=== PATIENT | female | born 1955 | race African-American/Black ===

== ENCOUNTER 2025-08-23 22:30 | Emergency (ER) | payer OTHER ==
[~2025-08-23] VITALS: Ht 167.6 cm; Wt 95.0 kg
[~2025-08-23 22:30] MED LIST: AMLO5TAB88 MT; ATOR-2 PO; EZET10TA81 MT; INSU100I28 SQ; LOSA50TA41 MT; METO-539 MT; MIRT7.5T11 MT; RIVA20TA MT; SITA50TA3 MT; VENL75CA56 MT
[2025-08-23 22:42] VITALS: O2SAT 100
[2025-08-23] MEDS: MAGNESIUM/ALUMINUM HYDROXIDE/SIMETHICONE 30ML UDC PO ONE (22:45)
[2025-08-23] MEDS: ACETAMINOPHEN 325MG TABLET PO ONE (22:45)
[2025-08-24 00:01] LABS: BASOPHILS % 0.9 % (0.0-2.0); EOSINOPHILS % 2.6 % (0.0-5.0); HEMATOCRIT. 38.7 % (36.0-48.0); HEMOGLOBIN. 12.1 g/dL (12.0-16.0); LYMPHOCYTES % 30.9 % (20.0-50.0); MEAN PLATELET VOLUME 8.3 fl (7.4-10.4); MONOCYTES % 7.1 % (2.0-8.0); NEUTROPHILS % 58.5 % (40.0-76.0); PLATELET 369 x1000/uL (130-400); RED BLOOD CELL COUNT 4.66 mill/uL (4.2-5.4); RED CELL DISTRIBUTION WIDTH 16.9 % (11.6-14.6)
[2025-08-24] MEDS: MAGNESIUM/ALUMINUM HYDROXIDE/SIMETHICONE 30ML UDC PO NR (00:54)
[2025-08-24] MEDS: ACETAMINOPHEN 325MG TABLET PO NR (00:55)
[2025-08-24 01:15] LABS: CLARITY URINE CLEAR (CLEAR); COLOR URINE YELLOW (YELLOW); GLUCOSE URINE 1+ (NEGATIVE); KETONES URINE NEGATIVE (NEGATIVE); LEUKOCYTE ESTERASE URINE 1+ (NEGATIVE); NITRITE URINE POSITIVE (NEGATIVE); OCCULT BLOOD URINE NEGATIVE (NEGATIVE); PH URINE 6.0 (4.5-8.0); PROTEIN URINE NEGATIVE (NEGATIVE); SPECIFIC GRAVITY URINE 1.015 (1.005-1.030); UROBILINOGEN URINE 0.2 E.U./dL (0.2-1.0)
[2025-08-24 01:22] LABS: CREATININE 1.4 mg/dL (0.6-1.0)
[2025-08-24 01:23] LABS: UREA NITROGEN BLOOD 22 mg/dL (9-23)
[2025-08-24 01:23] LABS: *AMPHETAMINES SCREEN URINE NEGATIVE (NEGATIVE); *BARBITURATES SCREEN URINE NEGATIVE (NEGATIVE); *BENZODIAZEPINES SCREEN URINE NEGATIVE (NEGATIVE)
[2025-08-24 01:24] LABS: *COCAINE SCREEN URINE NEGATIVE (NEGATIVE); CANNABINOID URINE SCREEN NEGATIVE (NEGATIVE); ECSTASY MDMA SCREEN URINE NEGATIVE (NEGATIVE); METHADONE URINE SCREEN NEGATIVE (NEGATIVE); OPIATES URINE SCREEN NEGATIVE (NEGATIVE); PHENCYCLIDINE URINE SCREEN NEGATIVE (NEGATIVE)
[2025-08-24 01:25] LABS: ASPARTATE AMINOTRANSFERASE 14 IU/L (<34); BILIRUBIN DIRECT < 0.1 mg/dL (<=3.0); BILIRUBIN TOTAL 0.3 mg/dL (0.1-1.0); PROTEIN TOTAL 7.6 g/dL (6.0-8.3)
[2025-08-24] MEDS: CEFTRIAXONE 2GM/50ML 50 ML IV NR (01:48)
[2025-08-24 01:50] LABS: SQUAMOUS EPITHELIAL CELL URINE 1+ /lpf (RARE/1+)
[2025-08-24 01:51] LABS: BACTERIA URINE 1+; RBC URINE NONE SEEN /hpf (0-2); WBC URINE 15-25 /hpf (0-2)
[2025-08-24] MEDS: METRONIDAZOLE 500 MG PREMIX 100 ML IV NR (02:45)
[2025-08-24 03:20] VITALS: BP 148/65; PULSE 63; RESP 11; TEMP 37; O2SAT 99
== END 2025-08-24 03:55 | disposition short-term general hospital (02) ==
LOC: ER 22:30 → CMPBEDREQ 08-24 07:34
DX: R10.84 Generalized abdominal pain (principal); R62.7 Adult failure to thrive; F03.90 Unspecified dementia, unspecified severity, without behavioral disturbance, psychotic disturbance, mood disturbance, and anxiety; N39.0 Urinary tract infection, site not specified; K43.9 Ventral hernia without obstruction or gangrene; E11.9 Type 2 diabetes mellitus without complications; I11.9 Hypertensive heart disease without heart failure; Z79.01 Long term (current) use of anticoagulants; Z79.4 Long term (current) use of insulin; Z79.84 Long term (current) use of oral hypoglycemic drugs; Z79.899 Other long term (current) drug therapy; Z85.528 Personal history of other malignant neoplasm of kidney; Z90.5 Acquired absence of kidney
CPT/HCPCS: 80320; 83880; 85025; 36415 ×2; 71045; 74176; 93005; 99285; 80076; 80305; 80048; 81003; 83690; 87040; 87086; 87186; 87077; 96365; 96375; J0696; J3490; G0480